=== PATIENT | male | born 1965 | race Caucasian/White ===

== ENCOUNTER 2017-05-07 19:33 | Emergency (ER) | payer BC ==
[~2017-05-07] VITALS: Ht 172.7 cm; Wt 95.5 kg
[2017-05-07 19:56] VITALS: Ht 172.7 cm; Wt 95.5 kg
[2017-05-07 23:35] LABS: URINE BLOOD (Dip) POC Negative (NEGATIVE)
[2017-05-07] MEDS ORDERED: CIPR500T4 PO (23:59)
--- NOTE | 2017-05-07 23:59 | ERD ---
ER Documentation Chief Complaint Date/Time DATE: 05/07/17 TIME: 23:44 Chief Complaint abd pain x 2 weeks HPI This 51-year-old male patient running to emergency department today for reports of low abdominal pain, dysuria, with urgency, patient reports difficulty starting urine flow, and reports drinking after voiding is complete. Patient also reports that he has red irritated penis. Patient states that he has had this before when it was very hot. Patient reports that he works outside. Is sexually active in a monogamous relationship, denies extramarital affairs. Denies penile discharge, back pain, or fever. ROS All systems reviewed and are negative except as per history of present illness. Medications Home Meds Active Scripts Ketoconazole* (Nizoral*) 2%-30 Gm Cream..g., 1 APPLIC TOP BID for 7 Days, TUB Prov:DAVID,AYLIN 05/08/17 Ciprofloxacin Hcl* (Ciprofloxacin Hcl*) 500 Mg Tablet, 500 MG PO BID for 10 Days , TAB Prov:DAVID,AYLIN 05/07/17 Allergies Allergies: Coded Allergies: No Known Allergy (Unverified , 05/07/17) PMhx/Soc Medical and Surgical Hx: pt denies Medical Hx, pt denies Surgical Hx Hx Alcohol Use: Yes (socially) Hx Substance Use: No Hx Tobacco Use: No Smoking Status: Never smoker Physical Exam Vitals Vitals stable, triage notes reviewed Physical Exam Const: Well-nourished, well-hydrated, in no acute distress Head: Atraumatic Eyes: Normal Conjunctiva ENT: Normal External Ears, Nose and Mouth. Neck: Resp: Respirations even and unlabored, no respiratory distress Cardio: Abd: Soft, non tender, non distended. Negative McMurphy sign, negative McBurney's point tender, negative CVA Male genitalia: Uncircumcised penis with blotchy red patch, white cheeselike consolidation around the glans penis. No ulcers, lesion, or penile discharge, testicles distended. Skin: No petechiae or rashes Back: No midline or flank tenderness Ext: Neur: Awake and alert Psych: Normal Mood and Affect Results 24 hrs Laboratory Tests Test 05/07/17 23:38 Bedside Urine pH (LAB) 7.0 Bedside Urine Protein (LAB) 1+ Bedside Urine Glucose (UA) Negative Bedside Urine Ketones (LAB) Negative Bedside Urine Blood Negative Bedside Urine Nitrite (LAB) Negative Bedside Urine Leukocyte Esterase (L Negative Urinalysis negative for evidence of infection, no leukocytosis, nitrates, microscopic hematuria. Procedures/MDM This pleasant 51-year-old male patient presents to emergency department with complaints of penile pain without discharge, difficulty initiating urination flow, dysuria with no history of BPH. Urinalysis negative for evidence of infection, no leukocytosis or nitrates. Low suspicion for STI, pyelonephritis, or diabetes. Physical exam findings and history are consistent with balanitis. Suspected prostatitis. Patient treated with Cipro 500 mg 1 tab p.o. twice daily 10 days, ketoconazole applied to glans penis twice daily. Keep area clean, dry, return to emergency department for fever, symptoms not improving on current plan of care. I feel the patient is stable for discharge at this time with outpatient management by primary care physician. I have discussed results , examination findings, the treatment plan with the patient and family present prior to discharge. Indications for emergent reevaluation, side effects of medication were also discussed. All questions were answered. Patient verbalizes understanding and agrees with plan of care. Departure Diagnosis: Primary Impression: Prostatitis Prostatitis type: unspecified Qualified Code: N41.9 - Prostatitis, unspecified prostatitis type Additional Impression: Balanitis Condition: Good Patient Instructions: Bacterial Prostatitis, Balanitis Additional Instructions: Thank you for for coming to [facility] for your care today. Please ask your nurse or provider if you have questions about your care today and do not leave until all your questions have been answered. Please use any medications given as directed and follow-up with your doctor (or the doctor you were referred to) in the next 2-3 days. If you do not have a primary care doctor you may follow up at the [facility] (listed below). You may also use motrin and tylenol as needed for fever and/or pain unless instructed otherwise by your provider or nurse. Indications for more urgent follow-up have been discussed, but you may return to the Emergency Department at ANY time for any worrisome or worsening symptoms. If you have abdominal pain, please know that no test or exam you received is perfect and you should follow up within 8 hours for continued pain. If you had any imaging studies today, such as an X-Ray or CT Scan, these studies will be reviewed later by a radiologist. You will be called if there are important findings that were not identified today, so make sure the contact information you provided at registration is correct. If you received any narcotic pain control medicine today, such as Vicodin, Morphine or Dilaudid, your coordination and judgment may be affected for a number of hours. Please do not drive or operate heavy machinery, and you may want someone to assist you at home. If you were given a prescription for narcotic medication, be aware that it is very addictive- use sparingly and only if necessary. AYLIN HERNANDEZ May 07, 2017 23:59
[2017-05-08] MEDS ORDERED: NIZ30CR2 TOP (00:02)
[2017-05-08 00:15] VITALS: BP 155/80; PULSE 72; RESP 18; TEMP 98.3
== END 2017-05-08 00:16 | disposition home or self-care (01) ==
LOC: FTE 19:33
DX: N41.9 Inflammatory disease of prostate, unspecified (principal); N48.1 Balanitis
CPT/HCPCS: 81003; 99283